=== PATIENT | female | born 1945 | race Caucasian/White ===

== ENCOUNTER → 2016-10-27 | Outpatient (CLI) | payer MEDICARE, OTHER ==
[~2016-10-27] MED LIST: ALEN5TAB3 PO; ASP81CT PO; CATHETER FLUSH 10 ML SYR IV PRN; CHOL3000 PO; CPR500T PO; HYDR-229 PO; HYDR-91 PO; HYOS0.1217 PO; NITR-33 PO; NITR100C3 PO; OMEG1CAP PO; PHEN200T27 PO; PYRI50CA PO; SIMV20TA3 PO; UBID30CA13 PO; [UNRECOGNIZED DRUG - CODE] PO
--- OUTSIDE RECORDS SUMMARY | 2016-10-27 07:33 | XMS REPORT | Continuity of Care Document ---
Author Author [facility] Organization [facility] Address Unknown Phone Unavailable Care Team Providers Care Shipping Processor Name Role Phone RIKY CURRAN MD PP Insurance Providers Payer Name Policy Number Subscriber Name Relationship s Medicare [id number] Heena Vásquez Self / Same As Patient For Life [id number] Heena Vásquez Self / Same As Patient Advance Directives Directive Response Recorded Date Advance Directives N 05/19/13 11:56am Problems No Known Problems or Medical conditions. Social History History Response Recorded Date/Time Alcohol Use Denies Use 05/19/13 11:56am Recreational Drug Use N 05/19/13 11:56am Sexually Transmitted Disease N 12/18/12 9 :05pm HIV/AIDS N 12/18/12 9:05pm Allergies, Adverse Reactions, Alerts Allergen Type Severity Reaction Last Updated Sulfa(Sulfonamide Antibiotics) Allergy Unknown 12/18/12 Codeine Allergy Unknown 12/18/12 Medications Medication Dose Units Route Sig Qty Days Acetaminophen/Hydrocodone Bitart (Lortab 10-500 Tablet) 1 Each PO Q 4 - 6 HRS PRN 30 Aspirin (Aspirin 81 Mg Chew Tab) 81 Mg PO DAILY Pyridoxine Hcl (Vitamin B-6) 50 Mg PO DAILY Ubidecarenone (Coq-10) 30 Mg PO PER PACKAGE INSTR Cholecalciferol (Vitamin D3) 3000 Unit PO DAILY Simvastatin 20 Mg PO DAILY Alendronate Sodium 5 Mg PO WEEKLY Ciprofloxacin (Cipro) 1 Tab PO BID 5 Phenazopyridine HCl (Pyridium) 1 Each PO TID PRN 10 Immunizations Name Given Type Date of Pneumonia Vaccine 12/10/07 H Response Recorded Date/Time Status not known Unknown Results No Known Relevant Diagnostic Tests, Laboratory Data and/or Discharge Summary. Encounters Encounter Location Date/Time Departed Emergency Room [facility] 06/23 11:53am
--- NOTE | 2016-10-27 10:21 | Progress Note-Standard ---
Standard Progress Note Progress Notes/Assess & Plan Progress/Assessment & Plan Anesthesia Note ([id number]) Called for IV start in nuclear medicine. 22 G IV Rt AC. Secured with sterile tegaderm and flushed easily. Will be available if needed. SAADIA NOBLE DO Oct 27, 2016 10:21
--- NOTE | 2016-10-27 10:57 | Diagnostic Imaging Report ---
Clinical indication: Patient with elevated liver enzymes. COMPARISON: None. PROCEDURE: The patient was administered 5.41 millicuries of technetium 99m Choletec. After 60 minutes of the images, one can of Ensure was drink followed by another 60 minutes of imaging. A nuclear medicine hepatobiliary scan with ejection fraction was performed. FINDINGS: There is prompt uptake and excretion of radiotracer by the liver. Activity is visible in the gallbladder by 30 minutes and the small bowel by 20 minutes. Ejection fraction of the gallbladder is calculated at 94% (normal >35%). The gallbladder visibly empties on the scans following the ingestion of Ensure. IMPRESSION: Normal hepatobiliary scan with normal gallbladder ejection fraction. Dictated by: Dictated on workstation # [id number]
== END ==
LOC: CARD 07:30
PROVIDERS: ATTEND Family Medicine
DX: R74.8 Abnormal levels of other serum enzymes (principal)
CPT/HCPCS: 78227

== ENCOUNTER 2021-09-25 19:42 | Emergency (ER) | payer MEDICARE, OTHER ==
[~2021-09-25] VITALS: Ht 162 cm; Wt 59.0 kg
[~2021-09-25 19:42] MED LIST changes: -CATHETER FLUSH 10 ML SYR IV PRN
[2021-09-25 20:14] LABS: BILIRUBIN,URINE NEGATIVE (NEGATIVE); CLARITY,URINE CLEAR; COLOR,URINE YELLOW; GLUCOSE, URINE (UA) NEGATIVE (NEGATIVE); KETONES,URINE NEGATIVE (NEGATIVE); LEUKOCYTE ESTERASE ,URINE NEGATIVE (NEGATIVE); NITRITE,URINE NEGATIVE (NEGATIVE); PROTEIN,URINE NEGATIVE (NEGATIVE)
[2021-09-25 20:54] LABS: BACTERIA,URINE NEGATIVE /HPF; RBC,URINE 0-2 /HPF; SQUAMOUS EPITHELIAL CELL,UR 0-2 /HPF; WBC,URINE 0-2 /HPF
--- NOTE | 2021-09-25 21:03 | ED GU-Female ---
General Chief Complaint: - Reproductive Stated Complaint: UTI SYMPTOMS Nursing Triage Note: PT AMB TO ER WITH C/O BLADDER PRESSURE THAT HAS BEEN INCREASING OVER THE LAST DAY. PT IS TRYING TO GET INTO A HOTBED LEVER OPERATOR OR UROLOGY BUT DOESNT HAVE AN APPT YET Source: patient Exam Limitations: no limitations History of Present Illness Date Seen by Provider: Sep 25, 2021 Time Seen by Provider: 21:01 Initial Comments to ER with suprapubic abdominal pain described as pressure over the bladder. She feels the urge to urinate. She has some post void spasm sensation. No fevers or chills no nausea or vomiting. Symptoms present for about 3 weeks but today was the worst. She states the pain is the worst immediately after urinating and she has frequent urge to urinate. She describes this sensation as similar to having a ureteral stent when she feels like "it is all going to fall out". Timing/Duration: getting worse Severity/Quality: moderate Location: suprapubic Radiation: none Activities at Onset: none Prior Genitourinary Problems: none Associated Symptoms: denies symptoms Allergies and Home Medications Allergies Coded Allergies: Codeine (Verified Allergy, Unknown, 12/18/12) Sulfa (Sulfonamide Antibiotics) (Verified Allergy, Unknown, 12/18/12) Patient Home Medication List Home Medication List Reviewed: Yes Alendronate Sodium (Alendronate Sodium) 5 Mg Tablet, 5 MG PO WEEKLY, (Reported) Entered as Reported by: RICHARD MILLER on 12/18/122028 Aspirin (Aspirin 81 Mg Chew Tab) 81 Mg Chew, 81 MG PO DAILY, (Reported) Entered as Reported by: RICHARD MILLER on 12/18/122029 Cholecalciferol (Vitamin D3) 3,000 Unit Tablet, 3,000 UNIT PO DAILY, (Reported) Entered as Reported by: RICHARD MILLER on 12/18/122028 Gluc/Andrés-Msm#1/C/Kenny/Joaquin/Bor (Glucosamine-Chondr Complx Cplt) 1 Each Tablet, 2 TAB PO DAILY, (Reported) Entered as Reported by: LILIANA NICOLE on 05/22/13 1416 Hyoscyamine Sulfate (Hyoscyamine Sulfate 0.125 Mg) 0.125 Mg/Tab Tab.rapdis, 1-2 EACH PO Q4HR PRN, (Reported) Entered as Reported by: ANTHONY VALADEZ on 05/24/13 1120 Hyoscyamine Sulfate (Levsin-Sl) 0.125 Mg Tab.subl, 0.125 MG SL Q4H Prescribed by: RICHARD MILLER on 09/25/212148 Nitrofurantoin Macrocrystal (Macrobid 100 Mg) 100 Mg Capsule, 1 CAP PO BID, (Reported) Entered as Reported by: MARYBETH BRAGG on 05/31/13 0946 Sarah-3 Acid Ethyl Esters (Lovaza) 1 Gm Capsule, 4 GM PO DAILY, (Reported) Entered as Reported by: LILIANA NICOLE on 05/22/13 1416 Phenazopyridine HCl (Pyridium) 200 Mg Tablet, 1 TAB PO TID Prescribed by: RICHARD MILLER on 09/25/212148 Phenazopyridine Hcl (Pyridium) 200 Mg Tablet, 1 EACH PO TID PRN, (Reported) Entered as Reported by: ANTHONY VALADEZ on 05/24/13 112 Pyridoxine Hcl (Vitamin B-6) 50 Mg Capsule, 50 MG PO DAILY, (Reported) Entered as Reported by: RICHARD MILLER on 12/18/122028 Simvastatin (Simvastatin) 20 Mg Tablet, 20 MG PO DAILY, (Reported) Entered as Reported by: RICHARD MILLER on 12/18/122028 Ubidecarenone (Coq-10) 30 Mg Capsule, 30 MG PO PER PACKAGE INSTR, (Reported) Entered as Reported by: RICHARD MILLER on 12/18/122028 Review of Systems Review of Systems Constitutional: see HPI EENTM: see HPI Respiratory: no symptoms reported Cardiovascular: no symptoms reported Genitourinary: see HPI Musculoskeletal: no symptoms reported Skin: no symptoms reported Psychiatric/Neurological: No Symptoms Reported Past Pkutpaf-Ilwxeg-Dvclzu Hx Patient Social History Tobacco Use?: No Substance use?: No Alcohol Use?: Yes Alcohol type: Wine Alcohol Frequency: Rarely Immunizations Up To Date Influenza Vaccine Up-to-Date: No; Not Current First/Initial COVID19 Vaccinat: 12/05/20 Second COVID19 Vaccination Manav: 01/03/21 COVID19 Vaccine Armature Winder: ARNIE Past Medical History Surgery/Hospitalization HX: KIDNEY STONES Reproductive Disorders: No Sexually Transmitted Disease: No HIV/AIDS: No Physical Exam Vital Signs Vital Signs - First Documented 09/25/21 19:50 Temp 36.3 Pulse 91 B/P (MAP) 190/101 (130) Pulse Ox 97 O2 Delivery Room Air Capillary Refill : Less Than 3 Seconds Height, Weight, BMI Height: '" Weight: 126lbs. oz. 57.169672ts; 22.00 BMI Method:Stated General Appearance: WD/WN, no apparent distress Respiratory: no respiratory distress, no accessory muscle use Gastrointestinal: normal bowel sounds, soft Extremities: normal range of motion, non-tender Neurologic/Psychiatric: alert, normal mood/affect, oriented x 3 Skin: normal color, warm/dry Progress/Results/Core Measures Suspected Sepsis SIRS Temperature: Pulse: 91 Respiratory Rate: Blood Pressure 190 /101 Mean: 130 Results/Orders Lab Results Laboratory Tests Test 09/25/21 20:04 Range/Units Urine Color YELLOW Urine Clarity CLEAR Urine pH 6.0 5-9 Urine Specific [place] 1.010 L 1.016-1.022 Urine Protein NEGATIVE NEGATIVE Urine Glucose (UA) NEGATIVE NEGATIVE Urine Ketones NEGATIVE NEGATIVE Urine Nitrite NEGATIVE NEGATIVE Urine Bilirubin NEGATIVE NEGATIVE Urine Urobilinogen 0.2 < = 1.0 MG/DL Urine Leukocyte Esterase NEGATIVE NEGATIVE Urine RBC (Auto) 1+ H NEGATIVE Urine RBC 0-2 /HPF Urine WBC 0-2 /HPF Urine Squamous Epithelial Cells 0-2 /HPF Urine Crystals NONE /LPF Urine Bacteria NEGATIVE /HPF Urine Casts NONE /LPF Urine Mucus NEGATIVE /LPF Urine Culture Indicated NO My Orders Orders - RICHARD MILLER APRN Ua Culture If Indicated (09/25/21 19:46) Ct Abd/Pelvis Wo(Kidney Stone) (09/25/21 21:01) Phenazopyridine Tablet (Pyridium Tablet) (09/25/21 22:00) Hyoscyamine Sl Tablet (Levsin Sl Tablet) (09/25/21 22:00) Vital Signs/I&O 09/25/21 19:50 Temp 36.3 Pulse 91 B/P (MAP) 190/101 (130) Pulse Ox 97 O2 Delivery Room Air Capillary Refill : Less Than 3 Seconds Blood Pressure Mean: 130 Diagnostic Imaging Diagonstic Imaging: CT Comments NAME: HEENA MODI [facility] REC#: [id number] PT STATUS: REG ER : 1945 PHYSICIAN: RICHARD MILLER APRN ADMIT DATE: 09/25/21/ER Draft Date of Exam:09/25/21 CT ABD/PELVIS WO(KIDNEY STONE) INDICATION: Suprapubic pain and bladder pressure, history of kidney stones and hysterectomy and cholecystectomy TECHNIQUE: Multiple contiguous axial images were obtained through the abdomen and pelvis without the use of intravenous contrast. Auto Exposure Controls were utilized during the CT exam to meet ALARA standards for radiation dose reduction. Comparison made with 06/01/2013. The visualized portions of the lung bases are clear. There were no pleural fluid collections. There is no free intraperitoneal air The liver shows no focal lesion. Patient has had previous cholecystectomy. The spleen and adrenals appear normal. There is a small hiatal hernia. The left kidney shows a few scattered small nonocclusive stones as well as a probable cyst inferiorly. The right kidney shows no intrarenal calculi or hydronephrosis. There is a small cyst inferiorly in the right kidney. There is no retroperitoneal mass or adenopathy. There is no ascites or abnormal fluid present. Visualized bowel loops appear unremarkable except for uncomplicated colonic diverticuli. Urinary bladder is nearly empty and therefore difficult to evaluate. IMPRESSION: There are small nonocclusive stones in the left kidney. There are small cysts in each kidney. There is no hydronephrosis or ureteral stone. Urinary bladder is nearly empty and therefore difficult to evaluate. There is no acute-appearing abnormality. Dictated on workstation # [id number] Dict: 09/25/212136 Trans: 09/25/212141 CVB [id number] Interpreted by: ANSELMO KENNEDY MD Electronically signed by: Departure Communication (Admissions) 2100-Dr. Bates was tied up with a recurrent cardiac arrest patient, I was called ICU for intubation so there was about a 1 hour delay this patient to be seen by provider. Impression Primary Impression: Suprapubic pain Additional Impression: postvoid spasm Disposition: 01 HOME, SELF-CARE Condition: Stable Departure-Patient Inst. Decision time for Depature: 21:47 Referrals: RIKY CURRAN MD (PCP) Primary Care Physician FERMÍN COY ANGELA C DO Patient Instructions: Pelvic Pain Add. Discharge Instructions: 1. Call one of the air sampling and monitoring listed to further evaluate her symptoms which may be related to bladder prolapse. All discharge instructions reviewed with patient and/or family. Voiced understanding. Scripts Phenazopyridine HCl (Pyridium) 200 Mg Tablet 1 TAB PO TID, #9 TAB Prov: RICHARD MILLER APRN 09/25/21 Hyoscyamine Sulfate (Levsin-Sl) 0.125 Mg Tab.subl 0.125 MG SL Q4H, #10 TAB 0 Refills Prov: RICHARD MILLER APRN 09/25/21 RICHARD MILLER APRN Sep 25, 2021 21:03
--- NOTE | 2021-09-25 21:42 | Diagnostic Imaging Report ---
INDICATION: Suprapubic pain and bladder pressure, history of kidney stones and hysterectomy and cholecystectomy TECHNIQUE: Multiple contiguous axial images were obtained through the abdomen and pelvis without the use of intravenous contrast. Auto Exposure Controls were utilized during the CT exam to meet ALARA standards for radiation dose reduction. Comparison made with 06/01/2013. The visualized portions of the lung bases are clear. There were no pleural fluid collections. There is no free intraperitoneal air The liver shows no focal lesion. Patient has had previous cholecystectomy. The spleen and adrenals appear normal. There is a small hiatal hernia. The left kidney shows a few scattered small nonocclusive stones as well as a probable cyst inferiorly. The right kidney shows no intrarenal calculi or hydronephrosis. There is a small cyst inferiorly in the right kidney. There is no retroperitoneal mass or adenopathy. There is no ascites or abnormal fluid present. Visualized bowel loops appear unremarkable except for uncomplicated colonic diverticuli. Urinary bladder is nearly empty and therefore difficult to evaluate. IMPRESSION: There are small nonocclusive stones in the left kidney. There are small cysts in each kidney. There is no hydronephrosis or ureteral stone. Urinary bladder is nearly empty and therefore difficult to evaluate. There is no acute-appearing abnormality. Dictated by: Dictated on workstation # [id number]
[2021-09-25] MEDS ORDERED: PHEN-640 PO (21:49)
[2021-09-25] MEDS ORDERED: HYOS0.1283 SL (21:49)
[2021-09-25] MEDS ORDERED: HYOSCYAMINE 0.125 MG (LEVSIN) TAB PO ONE (22:00)
[2021-09-25] MEDS ORDERED: PHENAZOPYRIDINE 100 MG (PYRIDIUM) TABLET PO ONE (22:00)
[2021-09-25 22:18] VITALS: BP 167/90
== END 2021-09-25 22:20 | disposition home or self-care (01) ==
LOC: EDUNIT# 19:42 → ER 19:45
DX: R10.30 Lower abdominal pain, unspecified (principal); N32.89 Other specified disorders of bladder; Z79.82 Long term (current) use of aspirin
CPT/HCPCS: 74176; 81000